=== PATIENT | female | born 1980 | race Caucasian/White ===

== ENCOUNTER → 2016-11-07 | Outpatient (CLI) | payer BC, OTHER ==
[2016-11-07 14:06] LABS: BUN/CREATININE RATIO 16 (0-10)
== END ==
LOC: LAB 13:19
PROVIDERS: Internal Medicine Nephrology
DX: R30.0 Dysuria (principal); R39.9 Unspecified symptoms and signs involving the genitourinary system
CPT/HCPCS: 36415; 80048; 81001; 82043; 82570; 87086

== ENCOUNTER 2021-02-17 18:36 | Emergency (ER) | payer OTHER ==
[~2021-02-17 18:36] MED LIST: BACTRIM DS TAB1 EACH PO; IBUPROFEN600 MG PO; OMNICEF 300 MG300 MG PO; VITAMIN D31250 MCG PO; Voltaren Gel 1 % TOP
[2021-02-17 20:58] LABS: HEMOGLOBIN 13.2 gm/dl (12.3-15.3); RED BLOOD COUNT 4.56 M/UL (4.00-5.10); WHITE BLOOD COUNT 8.5 K/UL (4.5-11.0)
[2021-02-17 21:21] LABS: BUN/CREATININE RATIO 20 (0-10)
[2021-02-17] MEDS ORDERED: KEFLEX CAP 250250 MG PO (21:46)
== END 2021-02-17 22:05 | disposition home or self-care (01) ==
LOC: ER1 18:36
PROVIDERS: Physician Assistant
DX: I80.9 Phlebitis and thrombophlebitis of unspecified site (principal); Z90.49 Acquired absence of other specified parts of digestive tract; Z88.2 Allergy status to sulfonamides; Z88.8 Allergy status to other drugs, medicaments and biological substances
CPT/HCPCS: 73610; 80048; 83880; 85025; 99283

== ENCOUNTER → 2021-02-19 | Outpatient (CLI) | payer OTHER ==
[~2021-02-19] MED LIST changes: +KEFLEX CAP 250250 MG PO
== END ==
LOC: US 02-18 14:30
DX: R22.43 Localized swelling, mass and lump, lower limb, bilateral (principal); I82.819 Embolism and thrombosis of superficial veins of unspecified lower extremity
CPT/HCPCS: 93971